=== PATIENT | male | born 2000 | race Asian ===

== ENCOUNTER 2022-11-07 06:11 | Emergency (ER) | payer BC ==
[~2022-11-07] VITALS: Ht 172.7 cm; Wt 92.0 kg
[2022-11-07] MEDS ORDERED: BENZ200C52 PO (08:17)
[2022-11-07 09:20] VITALS: BP 127/86
== END 2022-11-07 09:20 | disposition home or self-care (01) ==
LOC: ER 06:11
DX: R05.3 Chronic cough (principal); J45.909 Unspecified asthma, uncomplicated
CPT/HCPCS: 71045; 99283

== ENCOUNTER 2022-11-27 13:47 | Emergency (ER) | payer BC ==
[~2022-11-27] VITALS: Ht 172.7 cm; Wt 87.0 kg
[~2022-11-27 13:47] MED LIST: BENZ200C52 PO
[2022-11-27 13:53] VITALS: BP 163/87
[2022-11-27 15:02] LABS: HEMATOCRIT 43.5 % (42.0-52.0); HEMOGLOBIN 14.8 g/dL (14.0-18.0); MEAN CORPUSCULAR HEMOGLOBIN 28.2 pg (28.0-32.0); MEAN CORPUSCULAR VOLUME 82.7 fL (80.0-94.0); PLATELET 328 x1000/uL (130-400); RED BLOOD CELL COUNT 5.26 mill/uL (4.7-6.1); RED CELL DISTRIBUTION WIDTH 13.5 % (11.6-14.6)
[2022-11-27 15:03] LABS: CHLORIDE 104 mEq/L (98-107)
== END 2022-11-27 15:51 | disposition home or self-care (01) ==
LOC: ER 13:47
DX: R11.10 Vomiting, unspecified (principal); R19.7 Diarrhea, unspecified; R10.9 Unspecified abdominal pain; J45.909 Unspecified asthma, uncomplicated; F31.9 Bipolar disorder, unspecified
CPT/HCPCS: 36415; 80053; 85027; 99283